=== PATIENT | male | born 1990 | race African-American/Black ===

== ENCOUNTER 2018-08-13 11:58 | Emergency (ER) | payer MEDICAID ==
[~2018-08-13] VITALS: Ht 182.9 cm; Wt 82.9 kg
[2018-08-13 13:01] VITALS: BP 114/57
== END 2018-08-13 14:41 | disposition home or self-care (01) ==
LOC: ED 13:55
DX: B35.3 Tinea pedis (principal); F17.210 Nicotine dependence, cigarettes, uncomplicated
CPT/HCPCS: 99282